=== PATIENT | male | born 1980 | race Asian ===

== ENCOUNTER → 2019-05-04 11:24 | Outpatient (CLI) | payer OTHER, SELFPAY ==
--- NOTE | 2019-05-04 | DI.MRI.S_ITS ---
PROCEDURE: MR ANKLE RT WO CON INDICATIONS: RIGHT ANKLE PAIN TECHNIQUE: Noncontrast sagittal T1 spin echo and T2 fast spin echo with fat saturation, axial proton density fast spin echo and T2 fast spin echo with fat saturation, coronal T1 spin echo and T2 fast spin echo with fat saturation through the ankle/hindfoot. COMPARISON: None. FINDINGS: Image quality: Excellent. Bones and joints: No bone marrow contusions or fractures. No hindfoot coalitions. No osteochondral injuries of the talar dome. Small to moderate amount of fluid within tibiotalar joint and subtalar joint is seen. Medial structures: The posterior tibialis, flexor digitorum longus, and flexor hallucis longus tendons are thickened with fluid distending the flexor tendon sheath suggestive of low to moderate grade tenosynovitis. The posterior tibial neurovascular bundle appears normal within the tarsal tunnel, without extrinsic mass effect. The deep layer (anterior and posterior tibiotalar ligaments) and superficial layer (tibionavicular, tibiospring, and tibiocalcaneal ligaments) of the deltoid ligament appear normal. Sprain/low-grade partial-thickness tear involving spring ligament complex is seen. Lateral structures: The calcaneofibular, and posterior talofibular ligaments appear intact. Ruptured anterior talofibular ligament is seen. More superiorly, the anterior and posterior tibiofibular ligaments appear intact, as is the intermalleolar ligament. The tibiofibular syndesmosis is normal in width at 2 mm or less. The peroneus longus and brevis tendons demonstrate normal location and morphology. Adjacent bony peroneal tubercle and retrotrochlear prominence are normal in size. The sinus tarsi demonstrates normal fatty signal, without edema, fibrosis, or cyst formation. Visualized sinus tarsi components (cervical ligament, interosseous talocalcaneal ligament, roots of the inferior extensor retinaculum) appear normal. The calcaneonavicular and calcaneocuboid components of the bifurcate ligament appear intact. The dorsal calcaneocuboid ligament appears intact. Anterior structures: The tibialis anterior, extensor hallucis longus, and extensor digitorum longus tendons appear intact. The dorsal talonavicular ligament appears intact. Posterior and plantar structures: Achilles tendon is intact. Medial and lateral bands of the plantar fascia are of normal thickness. No abductor digiti quinti muscle atrophy to suggest Pickard neuropathy. IMPRESSION: 1. Ruptured anterior talofibular ligament. Posterior talofibular ligament, anterior and posterior tibiofibular ligament are intact. Sprain/low-grade partial-thickness involving spring ligament complex. 2. Tenosynovitis involving the flexor tendons at the level of talus. Extensor and peroneus tendons are intact. Achilles tendon is intact. 3. Small to moderate amount of tibiotalar joint effusion, no gross intra-articular loose body. No marrow edema. No fracture or dislocation. Dictated by: Barrington Shrestha M.D. on 05/04/2019 at 15:46 Approved by: Barrington Shrestha M.D. on 05/04/2019 at 15:51
== END ==
PROVIDERS: Visit Provider Podiatrist
DX: M25.571 Pain in right ankle and joints of right foot (principal); S93.491A Sprain of other ligament of right ankle, initial encounter; M65.871 Other synovitis and tenosynovitis, right ankle and foot; M25.471 Effusion, right ankle
CPT/HCPCS: 73721